=== PATIENT | male | born 1980 | race Caucasian/White ===

== ENCOUNTER 2017-12-29 02:33 | Emergency (ER) | payer OTHER ==
[2017-12-29 02:53] VITALS: O2SAT 100
[2017-12-29] MEDS ORDERED: DUONEB 0.5-3 MG/3 ml Neb IH ONE ×2 (03:11→03:25)
--- NOTE | 2017-12-29 03:27 | ERPHSYRPT ---
- History of Present Illness Time Seen by Provider: 12/29/17 03:14 Source: patient Exam Limitations: no limitations Patient Subjective Stated Complaint: pt states he has seasonal allertgies and he has been coughing and is short of breath. Triage Nursing Assessment: pt alert and oriented, answers questions approp. pt ambulatory with steady gait noted, respirations nonlabored with lungs cta. frequent cough noted, nonproductive at this time. skin pink warm and dry. Physician History: 37 y/o male with history of seasonal allergies comes to the ER with a difficult time taking a deep breath for the last couple of days. Pt also admits to dry cough as well. Pt states that he thinks it may be his allergies but he usually has sinus congestion but now does not have those symptoms. Pt denies any fever, chills, chest pain, or palpitations. Timing/Duration: yesterday Activities at Onset: none Severity of Dyspnea-Max: mild Severity of Dyspnea-Current: mild Possible Cause: no prior episodes Modifying Factors: Improves With: nothing Associated Symptoms: denies symptoms International travel in last 2 weeks: No Allergies/Adverse Reactions: steroid Adverse Reaction (Uncoded 12/29/17 02:54) Home Medications: Cetirizine HCl [Zyrtec] 10 mg PO DAILY 12/29/17 [History] Hx Tetanus, Diphtheria Vaccination/Date Given: No Hx Influenza Vaccination/Date Given: No Hx Pneumococcal Vaccination/Date Given: No Immunizations Up to Date: No - Review of Systems Constitutional: No Fever, No Chills Eyes: No Symptoms Ears, Nose, & Throat: No Symptoms Respiratory: Cough, Dyspnea, No Wheezing Cardiac: No Chest Pain, No Edema, No Syncope Abdominal/Gastrointestinal: No Abdominal Pain, No Nausea, No Vomiting, No Diarrhea Genitourinary Symptoms: No Dysuria Musculoskeletal: No Back Pain, No Neck Pain Skin: No Rash Neurological: No Dizziness, No Focal Weakness, No Sensory Changes Psychological: No Symptoms Endocrine: No Symptoms All Other Systems: Reviewed and Negative - Past Medical History Pertinent Past Medical History: No Other Medical History: seasonal allergies - Past Surgical History Past Surgical History: Yes Genitourinary: Kidney Surgery - Social History Smoking Status: Former smoker Exposure to second hand smoke: No Drug Use: none Patient Lives Alone: No - Nursing Vital Signs Nursing Vital Signs: Initial Vital Signs Temperature 97.6 F 12/29/17 02:41 Pulse Rate 85 07/07/18 02:41 Respiratory Rate 18 12/29/17 02:41 Blood Pressure 134/92 12/29/17 02:41 O2 Sat by Pulse Oximetry 100 12/29/17 02:41 Pain Scale Pain Intensity 0 - Physical Exam General Appearance: no apparent distress, alert Eye Exam: PERRL/EOMI Neck Exam: normal inspection, supple Respiratory Exam: normal breath sounds, lungs clear, airway intact, No chest tenderness, No respiratory distress Cardiovascular/Chest Exam: normal heart sounds, regular rate/rhythm Abdominal/Gastrointestinal Exam: soft, No tenderness, No distention, No mass Extremity Exam: non-tender, normal range of motion, normal inspection, no calf tenderness, no pedal edema Neurologic Exam: alert, oriented x 3, cooperative, oracle hrms developer II-XII nml as tested, sensation nml, No motor deficits Skin Exam: normal color, warm, No dry SpO2 Interpretation: normal SpO2: 100 Oxygen Delivery: Room Air - Course Nursing assessment & vital signs reviewed: Yes Ordered Tests: Active Orders 24 hr Category Date Time Status CHEST 2 VIEWS (PA AND LAT) Stat Exams 12/29/17 03:00 Completed Respiratory Nebulizer STAT RT 12/29/17 03:11 Completed Medication Summary Discontinued Medications Generic Name Dose Route Start Last Admin Trade Name Freq PRN Reason Stop Dose Admin Albuterol/Ipratropium 3 ml 12/29/17 03:11 12/29/17 03:28 Duoneb 0.5-3 Mg/3 Ml Neb IH 12/29/17 03:12 3 ml STAT ONE Administration Albuterol/Ipratropium Confirm 12/29/17 03:25 Duoneb 0.5-3 Mg/3 Ml Neb Administered 12/29/17 03:26 Dose 3 ml IH .STK-MED ONE Azithromycin 500 mg 12/29/17 03:37 12/29/17 03:43 Zithromax 250 Mg Tablet PO 12/29/17 03:38 500 mg STAT ONE Administration Azithromycin Confirm 12/29/17 03:42 Zithromax 250 Mg Tablet Administered 12/29/17 03:43 Dose 500 mg .ROUTE .STK-MED ONE - Progress Progress: improved Air Movement: good Progress Note: 12/29/17 03:38 Pt feels better after receiving duoneb. The CXR is within normal limits. The patient will be d/c home on azithromycin and ventolin. - Departure Time of Disposition: 03:39 Departure Disposition: Home Clinical Impression: Reactive airway disease Qualifiers: Asthma severity: mild Asthma persistence: intermittent Asthma complication type : uncomplicated Qualified Code(s): J45.20 - Mild intermittent asthma, uncomplicated Condition: Stable Critical Care Time: No Referrals: TREVON REGALADO [Primary Care Provider] - Instructions: Asthma, Adult (DC) Additional Instructions: Follow up with your primary care doctor if you should continue to have shortness of breath, cough, wheezing, fever or chills. Prescriptions: Albuterol Sulfate [Ventolin Hfa] 8 gm IH QID PRN PRN #1 [id number] PRN Reason: Shortness Of Breath/Wheezing Azithromycin 250 mg [Zithromax 250 MG TABLET] 250 mg PO DAILY #4 tablet
[2017-12-29] MEDS ORDERED: Zithromax 250 MG TABLET PO ONE (03:37)
[2017-12-29] MEDS ORDERED: Zithromax 250 MG TABLET ONE (03:42)
[2017-12-29 03:48] VITALS: BP 152/88; PULSE 84
--- NOTE | 2017-12-29 07:42 | XRAY ---
Indication: Short of breath. Comparison: None PA/lateral chest demonstrates normal heart and lungs. Bony thorax intact.
== END 2017-12-29 04:05 | disposition home or self-care (01) ==
LOC: ED 02:33
DX: J45.909 Unspecified asthma, uncomplicated (principal)
CPT/HCPCS: 71046; 94150; 94640; 99284; A9270-GY

== ENCOUNTER 2021-01-19 03:16 | Emergency (ER) | payer BC, MEDICAID ==
[2021-01-19 03:30] VITALS: O2SAT 97
--- NOTE | 2021-01-19 03:40 | ERPHSYRPT ---
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 Patient states he was at work when he began to sneeze. Patient's throat is mildly sore. Patient states it felt like his throat was getting tight. Patient went to the facility nurse who advised patient come to our ED. Patient administered Claritin and Benadryl prior to arrival. Patient symptoms are not progressive they are stable. No nausea or vomiting. No chest pain or shortness of breath. Symptoms off mild to moderate in intensity. No specific worsening improving factors. Patient voices no other complaints or concerns at this time. Timing/Duration: today Severity: moderate Modifying Factors: Improves With: nothing Associated Symptoms: denies symptoms Allergies/Adverse Reactions: steroid Adverse Reaction (Uncoded 12/29/17 02:54) Home Medications: Cetirizine HCl [Zyrtec] 10 mg PO DAILY 12/29/17 [History] Hx Tetanus, Diphtheria Vaccination/Date Given: No Hx Influenza Vaccination/Date Given: No Hx Pneumococcal Vaccination/Date Given: No - Review of Systems Constitutional: No Symptoms, No Fever, No Chills Eyes: No Symptoms Ears, Nose, & Throat: No Symptoms Respiratory: No Symptoms, No Cough, No Dyspnea Cardiac: No Symptoms, No Chest Pain, No Edema, No Syncope Abdominal/Gastrointestinal: No Symptoms, No Abdominal Pain, No Nausea, No Vomiting, No Diarrhea Genitourinary Symptoms: No Symptoms, No Dysuria Musculoskeletal: No Symptoms, No Back Pain, No Neck Pain Skin: No Symptoms, No Rash Neurological: No Symptoms, No Dizziness, No Focal Weakness, No Sensory Changes Psychological: No Symptoms Endocrine: No Symptoms Hematologic/Lymphatic: No Symptoms Immunological/Allergic: No Symptoms All Other Systems: Reviewed and Negative - Past Medical History Pertinent Past Medical History: No Other Medical History: seasonal allergies - Past Surgical History Past Surgical History: Yes Genitourinary: Kidney Surgery - Social History Smoking Status: Former smoker Exposure to second hand smoke: No Drug Use: none Patient Lives Alone: No - Nursing Vital Signs Nursing Vital Signs: Initial Vital Signs Temperature 98.3 F 01/19/21 03:29 Pulse Rate 66 01/19/21 03:29 Respiratory Rate 16 01/19/21 03:29 Blood Pressure 156/109 01/19/21 03:29 O2 Sat by Pulse Oximetry 97 01/19/21 03:29 Pain Scale Pain Intensity 5 - Physical Exam General Appearance: no apparent distress, alert, other (Rhinorrhea. Mild nasal congestion.) Eye Exam: PERRL/EOMI, eyes nml inspection Ears, Nose, Throat Exam: normal ENT inspection, TMs normal, pharynx normal, moist mucous membranes, other (Uvula at midline.) Neck Exam: normal inspection, non-tender, supple, full range of motion Respiratory Exam: normal breath sounds, lungs clear, No respiratory distress Cardiovascular Exam: regular rate/rhythm, normal heart sounds, normal peripheral pulses Gastrointestinal/Abdomen Exam: soft, normal bowel sounds, No tenderness, No mass Back Exam: normal inspection, normal range of motion, No CVA tenderness, No vertebral tenderness Extremity Exam: normal inspection, normal range of motion, pelvis stable Neurologic Exam: alert, oriented x 3, cooperative, normal mood/affect, nml cerebellar function, nml station & gait, sensation nml, No motor deficits Skin Exam: normal color, warm, dry, No rash Lymphatic Exam: No adenopathy SpO2 Interpretation: normal SpO2: 97 O2 Delivery: Room Air - Course Nursing assessment & vital signs reviewed: Yes Lab/Rad Data: Laboratory Results 01/19/21 Range/Units 03:47 Group A Strep Antibody NOT DETECTED (NEGATIVE) - Progress Progress: improved Progress Note: Reassessed. He is well. We intended to give patient prednisone for symptom relief however patient is allergic to steroids. Patient states that Benadryl helps his symptoms. He has Benadryl at home. We advised also adding on Pepcid which may be helpful as well. They will purchase this [id number]. Patient's primary care doctor, Dr. Guerrier is not available at this time. We will refer patient to Dr. Grant as she has no doc for today. Patient reassessed at discharge. He feels well. Vital stable. Significant other at bedside. They voiced no other complaints at this time. Will discharge home 01/19/21 04:29 Counseled pt/family regarding: lab results, diagnosis - Departure Departure Disposition: Home Clinical Impression: URI (upper respiratory infection), Allergies Condition: Stable Critical Care Time: No Referrals: DOCTOR,NO FAMILY [Primary Care Provider] - DEMETRI GRANT [ACTIVE STAFF] - Additional Instructions: Discharge/Care Plan SHANITA JOYNER was seen on 01/19/21 in the Emergency Room. The patient was counseled regarding Diagnosis,Lab results, Imaging studies, need for follow up and when to return to the Emergency Room. Prescriptions given: Discharge Note I have spoken with the patient and/or caregivers. I have explained the patient's condition, diagnosis and treatment plan based on the information available to me at this time. I have answered the patient's and/or caregiver's questions and addressed any concerns. The patient and/or caregivers have as good understanding of the patient's diagnosis, condition and treatment plan as can be expected at this point. The vital signs have been stable. The patient's condition is stable and appropriate for discharge from the emergency department. The patient will pursue further outpatient evaluation with the primary care physician or other designated or consulting physician as outlined in the discharge instructions. The patient and/or caregivers are agreeable to this plan of care and follow-up instructions have been explained in detail. The patient and/or caregivers have received these instruction. The patient/and or caregivers are aware that any significant change in condition or worsening of symptoms should prompt an immediate return to this or the closest emergency department or call 911.
[2021-01-19 04:35] VITALS: BP 146/110; PULSE 70
== END 2021-01-19 04:42 ==
LOC: ED 03:16
DX: J06.9 Acute upper respiratory infection, unspecified (principal); T78.40XA Allergy, unspecified, initial encounter
CPT/HCPCS: 87651; 99283